=== PATIENT | female | born 1955 | race Caucasian/White ===

== ENCOUNTER 2018-05-07 08:28 | Emergency (ER) | payer BC ==
[2018-05-07] MEDS ORDERED: Lidocaine 1%* 5 ML VIAL INJ ONE (08:47)
--- NOTE | 2018-05-07 09:04 | RAD ---
HISTORY: injury right fourth toe trauma COMPARISONS: None VIEWS: 3, Frontal, lateral, and oblique views of the right foot FINDINGS: BONE DENSITY: There is diffuse osteopenia. BONES: There is a slightly angulated fracture of the proximal phalanx of the fourth digit. JOINTS: There is first MTP osteoarthritis. ALIGNMENT: There is no dislocation. SOFT TISSUES: Unremarkable. OTHER FINDINGS: None. IMPRESSION: SLIGHTLY ANGULATED FRACTURE OF THE PROXIMAL PHALANX OF THE FOURTH DIGIT
[2018-05-07 09:24] VITALS: BP 0/0
--- NOTE | 2018-05-07 09:28 | ED ---
Lower Extremity - HPI Summary HPI Summary: Patient is a 63-year-old female who presents emergency department for a right toe injury. Pt. states she accidentally hit her foot off of a cabinet this morning. He complains of pain to her fourth digit of right foot. Symptoms are mild in severity. Touching area makes symptoms worse. Rest makes symptoms better. - History of Current Complaint Chief Complaint: EDExtremityLower Stated Complaint: RT TOE INJURY Time Seen by Provider: 05/07/18 08:40 Hx Obtained From: Patient Pain Intensity: 6 - Allergies/Home Medications Allergies/Adverse Reactions: Allergies Allergy/AdvReac Type Severity Reaction Status Date / Time No Known Allergies Allergy Verified 05/07/18 08:36 PMH/Surg Hx/FS Hx/Imm Hx Previously Healthy: Yes Infectious Disease History: No Infectious Disease History: Denies: Traveled Outside the [place] in Last 30 Days - Social History Occupation: Works From/At Home Lives: With Family Alcohol Use: None Substance Use Type: Reports: None Smoking Status (MU): Former Smoker Review of Systems Positive: Other - Right 4th toe injury All Other Systems Reviewed And Are Negative: Yes Physical Exam Triage Information Reviewed: Yes Vital Signs On Initial Exam: Initial Vitals Temp Pulse Resp BP Pulse Ox 98.7 F 87 18 144/114 98 05/07/18 08:32 05/07/18 08:32 05/07/18 08:32 05/07/18 08:32 05/07/18 08:32 Vital Signs Reviewed: Yes Appearance: Positive: Well-Appearing - Pt. lying in bed in NAD. Skin: Positive: Warm, Dry Head/Face: Positive: Normal Head/Face Inspection Eyes: Positive: Normal Neck: Positive: Supple Musculoskeletal: Positive: Other - Deformity noted to the right 4th digit of toe. No wounds. No proximal foot or ankle pain. Neurological: Positive: Normal, CN Intact II-III Psychiatric: Positive: Affect/Mood Appropriate Procedures - Splinting Right 4th Digit Location: 4th toe tonny taped to 3rd digit Pre-Proc Neuro Vasc Exam: normal Post-Proc Neuro Vasc Exam: normal Diagnostics - Vital Signs Vital Signs Temp Pulse Resp BP Pulse Ox 05/07/18 08:32 98.7 F 87 18 144/114 98 - Laboratory Lab Statement: Any lab studies that have been ordered have been reviewed, and results considered in the medical decision making process. Lower Extremity Course/Dx - Course Course Of Treatment: Pt. presenting for isolated toe fracture. Xray shows fracture through the base of 4th digit with slight angulation. 4th digit was taped to 3rd digit. Will have pt. f.u with ortho. To ice and elevate. Tylenol or Motrin for pain as directed. Pt. understands and agrees with plan. - Diagnoses Differential Diagnosis/HQI/PQRI: Positive: Dislocation, Fracture (Closed), Sprain, Strain Provider Diagnoses: Toe fracture Discharge - Sign-Out/Discharge Documenting (check all that apply): Patient Departure - Discharge Plan Condition: Good Disposition: HOME Patient Education Materials: Toe Fracture (ED) Referrals: Nash Ruano DO [Primary Care Provider] - Clarice Renae MD [Medical Doctor] - Additional Instructions: Call Dr. Renae's office for a follow up appointment Keep toe tonny taped Ice and elevate Tylenol or Motrin for pain as directed - Billing Disposition and Condition Condition: GOOD Disposition: Home
== END 2018-05-07 09:22 | disposition home or self-care (01) ==
LOC: ED 08:28
DX: S92.511A Displaced fracture of proximal phalanx of right lesser toe(s), initial encounter for closed fracture (principal); W22.8XXA Striking against or struck by other objects, initial encounter; Y92.9 Unspecified place or not applicable; Z87.891 Personal history of nicotine dependence
CPT/HCPCS: 99281